=== PATIENT | male | born 1980 | race Caucasian/White ===

== ENCOUNTER 2025-04-14 22:36 | Emergency (ER) | payer SELFPAY ==
--- OUTSIDE RECORDS SUMMARY | 2025-04-12 18:47 | XMS_ITS | Encounter Summary ---
Author Organization [facility] Address [address] [place] [address] Care Team Providers Care Workforce Analyst Name Role Phone Devora Hutton Patricia DETAIL TECHNICIAN Primary Care Provider [phone] Reason for Visit * Reason Comments Vomiting Generalized Body Aches Encounter Details Date Type Department Care Team ([facility] st Contact Info) Description 04/12/2025 6:47 PM CDT - 04/12/2025 9:59 PM CDT [facility] Emergency Medicine [address] [place] [phone] Inder Boone MD [address] [place] [address] [place] [address] Gastroenteritis (Primary Dx); Dehydration Discharge Disposition: Home or Self Care Social History Tobacco Use Types Packs/Day Years Used Date Smoking Tobacco: Former Smokeless Tobacco: Never Alcohol Use Standard Drinks/Week Comments Not Currently 0 (1 standard drink = 0.6 oz pur e alcohol) Feeling Safe Answer Date Recorded Are you in a relationship wi th someone who hurts you emotionally and/or physically? 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 Gender Identity Not on file Sexual Orientation Not on file documented as of this encounter Last Filed Vital Signs Vital Sign Reading Time Taken Comments Blood Pressure 122/69 04/12/2025 9:00 PM CDT Pulse 68 04/12/2025 9:00 PM CDT Temperature 36.2 C (97.2 F) 04/12/2025 6:51 PM CDT Respiratory Rate 16 04/12/2025 9:00 PM CDT Oxygen Saturation 97% 04/12/2025 9:00 PM CDT Inhaled Oxygen Concentration - - Weight 116.4 kg (256 lb 9.6 oz) 04/12/2025 6:51 PM CDT Height 170.2 cm (5' 7 ) 04/12/2025 6:51 PM CDT Body Mass Index 40.19 04/12/2025 6:51 PM CDT documented in this encounter Discharge Instructions * Attachments The following attachments cannot be sent through Care Everywhere. * Dehydration (Kenyan) * Gastroenteritis (Kenyan) * Ondansetron (Kenyan) documented in this encounter Medications at Time of Discharge ondansetron (ZOFRAN ODT) 4 mg Tablet, Rapid Dissolve Take 1 Tablet (4 mg) by mouth every 8 hours as needed for Nausea/Emesis. Dissolve tablet on top of tongue, then swallow with saliva. 20 Tablet 04/12/2025 documented as of this encounter ED Notes * Cindy Chew RN - 04/12/2025 6:56 PM CDT Patient arrived to the ED via private vehicle complaining of nausea and vomiting with muscle spasmsthroughout his body. Patient states he gets like this when he gets dehydrated and states he's not having pain right now but he feels sore all over. Patient states this has been going on for 2 days now and today the pain has gotten worse. * Inder Boone MD - 04/12/2025 6:39 PM CDT HISTORY OF PRESENT ILLNESS Jonh Fofana, a 44 y.o. male presents to the ED with a Chief Complaint of Vomiting and Generalized Body Aches Subjective This patient is a 44-year-old white male who presents to the emergency department stating that he has no energy. States that his hands are cramping and he is having diffuse muscle spasms. States he has had vomiting and diarrhea since yesterday. He has also been working out in the heat. REVIEW OF SYSTEMS Review of Systems Constitutional: Negative for appetite change, chills, diaphoresis, fatigue and fever. HENT: Negative for congestion, ear pain, postnasal drip, rhinorrhea, sinus pressure and sore throat. Eyes: Negative for pain and visual disturbance. Respiratory: Negative for cough, chest tightness, shortness of breath and wheezing. Cardiovascular: Negative for chest pain, palpitations and leg swelling. Gastrointestinal: Positive for diarrhea, nausea and vomiting. Negative for abdominal distention, abdominal pain, blood in stool and constipation. Genitourinary: Negative for decreased urine volume, difficulty urinating, dysuria, flank pain, frequency, hematuria, testicular pain and urgency. Musculoskeletal: Negative for arthralgias, back pain, joint swelling, myalgias, neck pain and neck stiffness. Skin: Negative for rash. Neurological: Negative for dizziness, seizures, syncope, speech difficulty, weakness, light-headedness, numbness and headaches. Hematological: Negative for adenopathy. Psychiatric/Behavioral: Negative for behavioral problems, confusion, decreased concentration, dysphoric mood, self-injury, sleep disturbance and suicidal ideas. The patient is not nervous/anxious. All other systems reviewed and are negative. PAST MEDICAL HISTORY REVIEWED MEDICAL: Patient has a past medical history of Degenerative disc disease, Genital herpes, Gout, Heartburn, and Pancreatitis. SURGICAL: Patient has a past surgical history that includes dental surgery and cholecystectomy. FAMILY: Patient's family history includes Healthy in his father and mother. SOCIAL: reports that he has quit smoking. He has never used smokeless tobacco. He reports that he does not currently use alcohol. He reports current drug use. Frequency: 7.00 times per week. Drug: Marijuana.He reports being sexually active. No history on file. Social History Other Topics Concern Not on file ALLERGIES Menthol, Azithromycin, and Unclassified drug HOME MEDICATIONS Patient's Home Medications Current Home Medications No medications on file Medications Modified during this Encounter No medications on file Medications Discontinued during this Encounter No medications on file Objective PHYSICAL EXAM INITIAL VS BP: (!) 139/90 (04/12/251850), Heart Rate: 99 bpm (04/12/251850), Resp: 16 (04/12/251850), Pulse: 93 (04/12/25 1900), Temp: 97.2 ??F (36.2 ??C) (04/12/251850), Temp src: Temporal (04/12/251850),SpO2: 97 % (04/12/251850), Height: 5' 7 (170.2 cm) (04/12/251850), Weight: 116.4 kg (256 lb 9.6 oz) (04/12/251850), BMI (Calculated): (!) 40.18 (04/12/251850) No LMP for male patient. Physical Exam Vitals and nursing note reviewed. Constitutional: General: He is not in acute distress. Appearance: Normal appearance. He is not ill-appearing. HENT: Head: Normocephalic and atraumatic. Eyes: Conjunctiva/sclera: Conjunctivae normal. Pupils: Pupils are equal, round, and reactive to light. Cardiovascular: Rate and Rhythm: Normal rate and regular rhythm. Pulmonary: Effort: Pulmonary effort is normal. No respiratory distress. Breath sounds: Normal breath sounds. Abdominal: General: Abdomen is flat. Bowel sounds are normal. Palpations: Abdomen is soft. Tenderness: There is no abdominal tenderness. Musculoskeletal: General: No tenderness. Normal range of motion. Skin: General: Skin is warm and dry. Neurological: General: No focal deficit present. Mental Status: He is alert and oriented to person, place, and time. Psychiatric: Mood and Affect: Mood normal. Behavior: Behavior normal. DIAGNOSTICS LAB: CBC WITH DIFFERENTIAL - Abnormal Result Value WBC 8.7 RBC 5.30 HEMOGLOBIN 16.5 HEMATOCRIT 46.0 MCV 86.8 MCH 31.1 MCHC 35.9 RDW 12.4 RDW-STDEV 38.7 PLATELETS 180 MPV 11.0 NEUTROPHILS 65 LYMPHOCYTES 25 MONOCYTES 8 EOSINOPHILS 1 BASOPHILS 1 IMMATURE GRANULOCYTES 1 NEUTROPHIL ABSOLUTE 5.61 (*) LYMPHOCYTE ABSOLUTE 2.15 MONOCYTE ABSOLUTE 0.71 EOSINOPHIL ABSOLUTE 0.09 BASOPHILS ABSOLUTE 0.06 IMMATURE GRANULOCYTES ABSOLUTE 0.04 BASIC METABOLIC PANEL - Abnormal SODIUM 139 POTASSIUM 4.1 CHLORIDE 101 CO2 21 (*) CALCIUM 10.4 (*) BUN 17 CREATININE 1.27 (*) GLUCOSE 83 GFR >60 ANION GAP 17 RADIOLOGY: No orders to display EKG: PROCEDURES Procedures MEDICAL DECISION MAKING AND PLAN OF CARE Medical Decision Making CBC and BMP were normal. Patient was given 2 L of normal saline and 4 mg of Zofran IV. He likely has gastroenteritis along with some dehydration. He was discharged in stable condition. I did prescribe Zofran and recommended he push fluids and get some rest for couple of days. Follow-up with his primary care physician if no improvement. Risk Prescription drug management. Clinical Scoring & Consults Medications Administered During the ED Stay from 04/12/2025 1839 to 04/12/20252122 Date/Time Order Dose Route Action 04/12/20252030 CDT sodium chloride 0.9 % bolus solution 1,000 mL 0 mL IV Stopped 04/12/20252000 CDT sodium chloride 0.9 % bolus solution 1,000 mL 1,000 mL IV New Bag 04/12/20252000 CDT ondansetron (ZOFRAN) 4 mg/2 mL injection 4 mg 4 mg IV Given 04/12/20252117 CDT sodium chloride 0.9 % bolus solution 1,000 mL 1,000 mL IV New Bag . New Prescriptions for this Encounter ONDANSETRON (ZOFRAN ODT) 4 MG TABLET, RAPID DISSOLVE Take 1 Tablet (4 mg) by mouth every 8 hours asneeded for Nausea/Emesis. Dissolve tablet on top of tongue, then swallow with saliva. LAST VS BP: 123/87 (04/12/251999), Heart Rate: 99 bpm (04/12/251850), Resp: 16 (04/12/251999), Pulse: 90(04/12/251999), Temp: 97.2 ??F (36.2 ??C) (04/12/251850), Temp src: Temporal (04/12/251850), SpO2: 96 % (04/12/251999) CLINICAL IMPRESSION Final diagnoses: [K52.9] Gastroenteritis (Primary) [E86.0] Dehydration DISPOSITION, EDUCATION AND MEDICATION RECONCILIATION Medications reconciled. See after visit summary for patient education on discharged patients. ED Disposition ED Disposition Discharge Condition Stable User Inder Boone MD Date/Time ThuApr 12, 2025 8:45 PM Comment -- ATTESTATION STATEMENTS documented in this encounter Plan of Treatment Not on file documented as of this encounter Procedures Procedure Name Priority Date/Time Associated Diagnosis Comments CBC WITH DIFFERENTIAL Stat 04/12/2025 7:43 PM CDT BASIC METABOLIC PANEL Stat 04/12/2025 7:43 PM CDT documented in this encounter Results * (ABNORMAL) BASIC METABOLIC PANEL (04/12/2025 7:43 PM CDT) SODIUM 139 136 - 145 mmol/L 04/12/2025 8:04 PM CDT [facility] POTASSIUM 4.1 3.5 - 5.1 mmol/L 04/12/2025 8:04 PM [facility] CHLORIDE 101 98 - 107 mmol/L 04/12/2025 8:04 PM [facility] CO2 21(L) 22 - 29 mmol/L 04/12/2025 8:04 PM [facility] CALCIUM 10.4(H) 8.6 - 10.0 mg/dL 04/12/2025 8:04 PM [facility] BUN 17 6 - 20 mg/dL 04/12/2025 8:04 PM [facility] CREATININE 1.27(H) 0.67 - 1.17 mg/dL 04/12/2025 8:04 PM [facility] GLUCOSE 83 74 - 99 mg/dL 04/12/2025 8:04 PM [facility] GFR >60 >=60 mL/min/1.7 3 sq meter 04/12/2025 8:04 PM [facility] Comment:eGFR calculated with 2020 CKD-EPI equation. Vegetarian diet, extremely high or low muscle mass, and may affect results. Cystatin C with Glomerular Filtration Rate is a suitable alternative for these patients. ANION GAP 17 5 - 20 mmol/L 04/12/2025 8:04 PM [facility] Blood BLOOD SPECIMEN / Unknown Collection / Unknown 04/12/2025 7:43 PM CDT 04/12/2025 7:49 PM CDT us Inder Boone MD CHEMISTRY ORDERABLES Fin al Result [facility] CLIA # [id number] [address] [place] [address] * (ABNORMAL) CBC WITH DIFFERENTIAL (04/12/2025 7:43 PM CDT) WBC 8.7 4.2 - 9.1 K/uL 04/12/2025 7:52 PM CDT [facility] RBC 5.30 4.63 - 6.08 M/uL 04/12/2025 7:52 PM CDT [facility] HEMOGLOBIN 16.5 13.7 - 17.5 g/dL 04/12/2025 7:52 PM T [facility] HEMATOCRIT 46.0 40.1 - 51.0 % 04/12/2025 7:52 [facility] MCV 86.8 79.0 - 92.2 fL 04/12/2025 7:52 PM T [facility] MCH 31.1 25.7 - 32.2 pg 04/12/2025 7:52 PM T [facility] MCHC 35.9 32.3 - 36.5 g/dL 04/12/2025 7:52 PM [facility] RDW 12.4 11.0 - 14.5 % 04/12/2025 7:52 PM [facility] RDW-STDEV 38.7 36.9 - 56.9 fL 04/12/2025 7:52 PM T [facility] PLATELETS 180 130 - 400 K/uL 04/12/2025 7:52 PM T [facility] MPV 11.0 10.0 - 14.8 fL 04/12/2025 7:52 PM [facility] NEUTROPHILS 65 34 - 68 % 04/12/2025 7:52 PM [facility] LYMPHOCYTES 25 22 - 53 % 04/12/2025 7:52 PM [facility] MONOCYTES 8 5 - 12 % 04/12/2025 7:52 PM CDT [facility] EOSINOPHILS 1 1 - 7 % 04/12/2025 7:52 PM CDT [facility] BASOPHILS 1 0 - 1 % 04/12/2025 7:52 PM CDT [facility] IMMATURE GRANULOCYTES 1 % 04/12/2025 7:52 PM CDT [facility] NEUTROPHIL ABSOLUTE 5.61(H) 1.78 - 5.38 K/uL 04/12/2025 7:52 PM CDT [facility] LYMPHOCYTE ABSOLUTE 2.15 1.20 - 3.40 K/uL 04/12/2025 7:52 PM CDT [facility] MONOCYTE ABSOLUTE 0.71 0.30 - 0.82 K/uL 04/12/2025 7:52 PM CDT [facility] EOSINOPHIL ABSOLUTE 0.09 0.04 - 0.54 K/uL 04/12/2025 7:52 PM CDT [facility] BASOPHILS ABSOLUTE 0.06 0.01 - 0.08 K/uL 04/12/2025 7:52 PM CDT [facility] IMMATURE GRANULOCYTES ABSOLUTE 0.04 K/uL 04/12/2025 7:52 PM T [facility] Blood BLOOD SPECIMEN / Unknown Collection / Unknown 04/12/2025 7:43 PM CDT 04/12/2025 7:49 PM CDT Inder Boone MD HEMATOLOGY ORDERABLES Fi nal Result [facility] # [id number] [address] [place] [address] documented in this encounter Visit Diagnoses Diagnosis Gastroenteritis- Primary Other and unspecified noninfectious gastroenteritis and colitis Dehydration documented in this encounter Administered Medications Inactive Administered Medications - up to 3 most recent administrations Medication Order MAR Action Action Date Dose Rate Site ondansetron (ZOFRAN) 4 mg/2 mL injection 4 mg 4 mg, IV, ONE TIME ONLY, 1 dose, On Thu04/12/25 at 1999, Stat Given 04/12/2025 8:01 PM CDT 4 mg sodium chloride 0.9 % bolus solution 1,000 mL 1,000 mL, IV, ONE TIME ONLY, 1 dose, On Thu04/12/25 at 2000, at 2,000 mL/hr, Administer over 30 Minutes, Routine New Bag 04/12/2025 8:01 PM CDT 1,000 mL 2000 mL/hr sodium chloride 0.9 % bolus solution 1,000 mL 1,000 mL, IV, ONE TIME ONLY, 1 dose, On Thu04/12/25 at 2100, at 2,000 mL/hr, Administer over 30 Minutes, Routine New Bag 04/12/2025 9:18 PM CDT 1,000 mL 2000 mL/hr documented in this encounter Active and Recently Administered Medications Times are shown in CDT. Scheduled Medication Order 04/10/2025 04/11/2025 04/12/2025 ondansetron (ZOFRAN) 4 mg/2 mL injection 4 mg (COMPLETED) 4 mg, IV, ONE TIME ONLY, 1 dose, On Thu04/12/25 at 2000, Stat 2000 (Given - Provid er: Eleni Day RN) sodium chloride 0.9 % bolus solution 1,000 mL (COMPLETED) 1,000 mL, IV, ONE TIME ONLY, 1 dose, On Thu04/12/25 at 2000, at 2,000 mL/hr, Administer over 30 Minutes, Routine 2000 (New Bag - Prov ider: Eleni Day, ALFREDO)2030 (Stopped - Provider: Eleni Day RN) sodium chloride 0.9 % bolus solution 1,000 mL (COMPLETED) 1,000 mL, IV, ONE TIME ONLY, 1 dose, On Thu04/12/25 at 2100, at 2,000 mL/hr, Administer over 30 Minutes, Routine 2117 (New Bag - Prov ider: Eleni Day RN)2147 (Stopped - Provider: Elnei Day, RN) documented in this encounter Care Teams Workforce Analyst Relationship Specialty Start Date End Date Devora Hutton FNP [address] [place] [phone] PCP - General NURSE PRACTITIONER 01/23/14 documented as of this encounter
[2025-04-14 22:38] VITALS: BP 159/107; PULSE 95; RESP 16; TEMP 36.7; O2SAT 96; BMI 42.5
--- OUTSIDE RECORDS SUMMARY | 2025-04-14 22:46 | XMS_ITS | Encounter Summary ---
Author Organization [facility] Address 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
--- OUTSIDE RECORDS SUMMARY | 2025-04-14 22:46 | XMS_ITS | Clinical Summary ---
Author Organization [facility] Address [address] Attn: [place] [address] Care Team Providers Care Optometric Technician Name Role Phone Devora Hutton Patricia [facility] Primary Care Provider [phone] Allergies Active Allergy Reactions Criticality Noted Date Comments Azithromycin Nausea and Vomiting Low 06/26/2024 Menthol Other (See Comments) 10/16/2018 Chemical burn Unclassified Drug Nausea and Vomiting Low 4 Medications ondansetron (ZOFRAN ODT) 4 mg Tablet, Rapid Dissolve Take 1 Tablet (4 mg) by mouth every 8 hours as needed for Nausea/Emesis . Dissolve tablet on top of tongue, then swallow with saliva. 20 Tablet 5 Active ketorolac tromethamine (TORADOL) 10 mg tablet Take 1 Tablet (10 mg) by mouth every 6 hours as needed for Pain. 20 Tablet 5 03/20/20 25 Encounters Date Type Department Care Team Description 04/12/2025 6:47 PM CDT - 04/12/2025 9:59 PM CDT Emergency [facility] Emergency Medicine [address] [place] [phone] Inder Boone MD Gastroenteritis (Primary Dx); Dehydration Discharge Disposition: Home or Self Care 04/12/2025 Travel 04/11/2025 External Device Data [place] ABSTRACTION Provider, Abstract 04/11/2025 External Device Data [place] ABSTRACTION Provider, Abstract 03/22/2025 External Device Data [place] ABSTRACTION Provider, Abstract 03/21/2025 External Device Data [place] ABSTRACTION Provider, Abstract 03/21/2025 External Device Data [place] ABSTRACTION Provider, Abstract 03/15/2025 2:59 PM CDT - 03/15/2025 4:15 PM CDT Emergency [facility] Emergency Medicine [address] [place] [phone] Tommie Lanza MD Contusion of right forearm, initial encounter (Primary Dx) Discharge Disposition: Home or Self Care 03/15/2025 Travel 02/18/2025 2:20 AM CDT - 02/18/2025 2:42 AM CDT Emergency [facility] Emergency Medicine [address] [place] [phone] Andrea Hardy MD Ear pain, right (Primary Dx) Discharge Disposition: Home or Self Care 02/18/2025 Travel from Last 3 Months Family History Medical History Relation Name Comments Healthy Father Healthy Mother Relation Name Status Comments Father Alive Mother Alive Social History Tobacco Use Types Packs/Day Years [...] on file 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 Gender Identity Not on file Sexual Orientation Not on file Last Filed Vital Signs Vital Sign Reading [...] Mass Index 40.19 04/12/2025 6:51 PM CDT Plan of Treatment Health Maintenance Due Date Last Done Comments Pre-Diabetes and Diabetes Screening 1981 DTAP/TDAP/TD VACCINES (1 - Tdap) 2000 HEPATITIS B VACCINES (1 of 3 - 19+ 3-dose series) 2000 INFLUENZA VACCINE (#1) 2025 HPV VACCINES Aged Out No longer eligi ble based on patient's age to complete this topic Procedures Procedure Name Priority Date/Time Associated Diagnosis Comments BASIC METABOLIC PANEL Stat 04/12/2025 7:43 PM CDT CBC WITH DIFFERENTIAL Stat 04/12/2025 7:43 PM CDT XR FOREARM 2 VW RIGHT Stat 03/15/2025 3:19 PM CDT from Last 3 Months Results * (ABNORMAL) CBC WITH DIFFERENTIAL (04/12/2025 7:43 PM CDT) WBC 8.7 4.2 - 9.1 K/uL 04/12/2025 7:52 PM CDT [facility] RBC 5.30 4.63 - 6.08 M/uL 04/12/2025 7:52 PM CDT [facility] HEMOGLOBIN 16.5 13.7 - 17.5 g/dL 04/12/2025 7:52 PM CDT [facility] HEMATOCRIT 46.0 40.1 - 51.0 % 04/12/2025 7:52 PM CDT [facility] MCV 86.8 79.0 - 92.2 fL 04/12/2025 7:52 PM CDT [facility] MCH 31.1 25.7 - 32.2 pg 04/12/2025 7:52 PM CDT [facility] MCHC 35.9 32.3 - 36.5 g/dL 04/12/2025 7:52 PM CDT [facility] RDW 12.4 11.0 - 14.5 % 04/12/2025 7:52 PM CDT [facility] RDW-STDEV 38.7 36.9 - 56.9 fL 04/12/2025 7:52 PM T [facility] PLATELETS 180 130 - 400 K/uL 04/12/2025 7:52 PM [facility] MPV 11.0 10.0 - 14.8 fL 04/12/2025 7:52 PM [facility] NEUTROPHILS 65 34 - 68 % 04/12/2025 7:52 PM [facility] LYMPHOCYTES 25 22 - 53 % 04/12/2025 7:52 PM [facility] MONOCYTES 8 5 - 12 % 04/12/2025 7:52 PM [facility] EOSINOPHILS 1 1 - 7 % 04/12/2025 7:52 PM [facility] BASOPHILS 1 0 - 1 % 04/12/2025 7:52 PM [facility] IMMATURE GRANULOCYTES 1 % 04/12/2025 7:52 PM [facility] NEUTROPHIL ABSOLUTE 5.61(H) 1.78 - 5.38 K/uL 04/12/2025 7:52 PM [facility] LYMPHOCYTE ABSOLUTE 2.15 1.20 - 3.40 K/uL 04/12/2025 7:52 PM [facility] MONOCYTE ABSOLUTE 0.71 0.30 - 0.82 K/uL 04/12/2025 7:52 PM [facility] EOSINOPHIL ABSOLUTE 0.09 0.04 - 0.54 K/uL 04/12/2025 7:52 PM [facility] BASOPHILS ABSOLUTE 0.06 0.01 - 0.08 K/uL 04/12/2025 7:52 PM [facility] IMMATURE GRANULOCYTES ABSOLUTE 0.04 K/uL 04/12/2025 7:52 PM [facility] Blood BLOOD SPECIMEN / Unknown Collection / Unknown 04/12/2025 7:43 PM CDT 04/12/2025 7:49 PM CDT us Inder Boone MD HEMATOLOGY ORDERABLES Fi nal Result [facility] CLIA # [id number] [address] [address] * (ABNORMAL) BASIC METABOLIC PANEL (04/12/2025 7:43 PM CDT) SODIUM 139 136 - 145 mmol/L 04/12/2025 8:04 PM [facility] POTASSIUM 4.1 3.5 - 5.1 mmol/L 04/12/2025 8:04 PM [facility] CHLORIDE 101 98 - 107 mmol/L 04/12/2025 8:04 PM [facility] CO2 21(L) 22 - 29 mmol/L 04/12/2025 8:04 PM [facility] CALCIUM 10.4(H) 8.6 - 10.0 mg/dL 04/12/2025 8:04 PM [facility] BUN 17 6 - 20 mg/dL 04/12/2025 8:04 PM [facility] CREATININE 1.27(H) 0.67 - 1.17 mg/dL 04/12/2025 8:04 PM [facility] GLUCOSE 83 74 - 99 mg/dL 04/12/2025 8:04 PM [facility] GFR >60 >=60 mL/min/1.7 3 sq meter 04/12/2025 8:04 PM [facility] Comment:eGFR calculated with 2020 CKD-EPI equation. Vegetarian diet, extremely high or low muscle mass, and may affect results. Cystatin C with Glomerular Filtration Rate is a suitable alternative for these patients. ANION GAP 17 5 - 20 mmol/L 04/12/2025 8:04 PM [facility] Blood BLOOD SPECIMEN / Unknown Collection / Unknown 04/12/2025 7:43 PM CDT 04/12/2025 7:49 PM CDT us Inder Boone MD CHEMISTRY ORDERABLES Fin al Result [facility] CLIA # [id number] [address] [address] * XR FOREARM 2 VW RIGHT (03/15/2025 3:19 PM CDT) Anatomical Region Laterality Modality Upper Extremity Computed Radiogr aphy 03/15/2025 3:19 PM CDT Impressions 03/15/2025 3:41 PM CDT IMPRESSION: No acute osseous abnormality. Narrative 03/15/2025 3:41 PM CDT Exam: XR FOREARM 2 VW RIGHT Date/Time of Exam: 03/15/2025 3:19 PM Reason For Exam: Injury. Diagnosis: See Reason for Exam. Comparison: None. Findings: There is no evidence of an acute fracture, dislocation or significant arthrosis. There is prominent proximal olecranon enthesopathy at the triceps tendon insertion. There is no apparent joint effusion. The soft tissues appear grossly unremarkable. Procedure Note Alonzo Callahan, DO - 03/15/2025 Exam: XR FOREARM 2 VW RIGHT Date/Time of Exam: 03/15/2025 3:19 PM Reason For Exam: Injury. Diagnosis: See Reason for Exam. Comparison: None. Findings: There is no evidence of an acute fracture, dislocation or significant arthrosis. There is prominent proximal olecranon enthesopathy at the triceps tendon insertion. There is no apparent joint effusion. The soft tissues appear grossly unremarkable. IMPRESSION: No acute osseous abnormality. Tommie Lanza MD DIAGNOSTIC IMAGING ORDERABLE S Final Result from Last 3 Months Care Teams Optometric Technician Relationship Specialty Start Date End Date Devora Hutton FNP [address] [place] [address] PCP - General NURSE PRACTITIONER 01/23/14
--- OUTSIDE RECORDS SUMMARY | 2025-04-14 22:46 | XMS_ITS | Encounter Summary ---
Author Organization [facility] Address 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
--- OUTSIDE RECORDS SUMMARY | 2025-04-14 22:46 | XMS_ITS | Encounter Summary ---
Author Organization [facility] Address [address] 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
--- OUTSIDE RECORDS SUMMARY | 2025-04-14 22:46 | XMS_ITS | Clinical Summary ---
[facility] Organization [facility] Address [address] [place] [address] Phone Care Team Providers Care Grain Inspector Name Role Phone BrennenDevora Patricia [facility] Primary Care Provider [phone] Allergies Active Allergy Reactions Criticality Noted Date Comments Menthol Other (See Comments) 10/16/2018 Chemical burn Unclassified Drug Nausea and Vomiting Low 4 Medications baclofen (LIORESAL) 20 mg tablet Take 1 Tablet (20 mg) by mouth 3 times daily as needed for Pain. 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 Gender Identity Not on file Sexual Orientation Not on file Occupation Industry Job Start Date Job End Date Not on file Not on file Not on file Not on file Last Filed Vital Signs Vital Sign Reading Time Taken Comments Blood Pressure 124/69 06/05/2019 5:22 PM CDT Pulse 60 11/24/2018 5:12 AM LAND SURVEYOR Temperature 36.4 C (97.6 F) 06/05/2019 5:22 PM CDT Respiratory Rate 20 06/05/2019 5:22 PM CDT Oxygen Saturation 98% 06/05/2019 5:22 PM CDT Inhaled Oxygen Concentration - - Weight 122.6 kg (270 lb 3.2 oz) 06/05/2019 2:45 PM CDT Height 172.7 cm (5' 8 ) 06/05/2019 2:45 PM CDT Body Mass Index 41.08 06/05/2019 2:45 PM CDT Plan of Treatment Health Maintenance Due Date Last Done Comments DTAP/TDAP/TD VACCINES (1 - Tdap) 2000 HEPATITIS B VACCINES (1 of 3 - 19+ 3-dose series) 2000 INFLUENZA VACCINE (#1) 2025 HPV VACCINES Aged Out No longer eligi ble based on patient's age to complete this topic [place] [address] [place] [address] [employer] Care Teams Grain Inspector Relationship Specialty Start Date End Date Devora Hutton FNP PCP - General NURSE PRACTITIONER 01/23/14
--- OUTSIDE RECORDS SUMMARY | 2025-04-14 22:46 | XMS_ITS | Encounter Summary ---
Author Organization [facility] Address [address] [place] [address] Care Team Providers Care Executive Sales Manager Name Role Phone Devora Hutton Primary Care Provider [phone] Encounter Details Date Type Department Care Team (Latest Contact Info) Description 08/19/2000 Outpatient Historical [facility] [place] [address] [place] [address] Magdalena Bradford MD [address] [place] [address] Other and unspecified noninfectious gastroenteritis and colitis(558.9) (Primary Dx) Social History Tobacco Use Types Packs/Day Years Used Date Smoking Tobacco: Never Assessed Sex and Gender Information Value Date Recorded Sex Assigned at Not on file 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
--- OUTSIDE RECORDS SUMMARY | 2025-04-14 22:46 | XMS_ITS | Encounter Summary ---
Author Organization [facility] Address [address] [place] [address] Care Team Providers Care Electric Motor Repairer Name Role Phone Devora Hutton Primary Care Provider [phone] Encounter Details Date Type Department Care Team (Latest Contact Info) Description 12/24/1998 Outpatient Historical [facility] [place] [address] [place] [id number] [address] [place] [address] Cough (Primary Dx) Social History Tobacco Use Types Packs/Day Years Used Date Smoking Tobacco: Never Assessed Sex and Gender Information Value Date Recorded Sex Assigned at Not on file 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
--- OUTSIDE RECORDS SUMMARY | 2025-04-14 22:46 | XMS_ITS | Encounter Summary ---
Author Organization [facility] Address [address] 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
--- OUTSIDE RECORDS SUMMARY | 2025-04-14 22:46 | XMS_ITS | Encounter Summary ---
Author Organization [facility] Address [address] [place] [address] Care Team Providers Care Pcat Instructor Name Role Phone Devora Hutton Primary Care Provider [phone] Encounter Details Date Type Department Care Team (Latest Contact Info) Description 12/24/1998 Outpatient Historical [facility] [place] [address] [place] [phone] [address] [place] [address] Cough (Primary Dx) Social History Tobacco Use Types Packs/Day Years Used Date Smoking Tobacco: Never Assessed Sex and Gender Information Value Date Recorded Sex Assigned at Not on file 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
--- OUTSIDE RECORDS SUMMARY | 2025-04-14 22:47 | XMS_ITS | Encounter Summary ---
Author Organization [facility] Address [address] 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
[2025-04-15 00:54] LABS: Hematocrit 47.1 % (37-53); Hemoglobin 16.80 g/dL (11.27-16.99); Mean Corpuscular HGB Conc 35.7 g/dL (30-55); Mean Corpuscular Hemoglobin 31.2 pg (27-33); Mean Corpuscular Volume 87.5 fl (82-101); Nucleated Red Blood Cells % 0 %; Platelet Count 217 10^3/cmm (157-399); Red Blood Count 5.38 10^6/uL (3.85-5.65); White Blood Count 10.00 10^3/uL (3.29-11.43)
[2025-04-15 01:19] LABS: Alanine Aminotransferase 38 U/L (0-41); Albumin Level 5.0 g/dL (3.5-5.2); Alkaline Phosphatase 93 U/L (40-130); Anion Gap 23.7 (5-19); Aspartate Amino Transferase 38 U/L (0-40); Blood Urea Nitrogen 18 mg/dL (6-20); Calcium 9.8 mg/dL (8.5-10.5); Carbon Dioxide 19 mmol/L (22-29); Chloride 96 mmol/L (98-107); Creatinine Clr Calc Pharmacy 80.5067; Globulin 3.9 g/dL (1.3-4.6); Glucose 107 mg/dL (65-115); Osmolality Calculated 282 mOsm/kg (285-295); Potassium 3.7 mmol/L (3.5-5.1); Sodium 135 mmol/L (136-145); Total Protein 8.9 g/dL (6.6-8.7)
[2025-04-15 01:26] LABS: Glucose Urine UA Negative (Normal); Nitrate Urine Negative (Negative); Specific Gravity, Urine 1.029 (1.005-1.030)
[2025-04-15 01:31] LABS: Add Urine Microscopic? YES
[2025-04-15] MEDS: LORazepam 1 MG/0.5 ML injection IVP ×2 (01:43→03:22)
[2025-04-15 01:48] LABS: UA Slide Review UA Slide Review Perf
--- NOTE | 2025-04-15 01:53 | ED_ITS ---
HPI - Weakness 2 General: Chief complaint: Weakness Stated complaint: muscle spasms whole body Time Seen by Provider: 04/15/25 01:28 History of Present Illness: 44-year-old male patient who was seen a couple of days ago in outside facility for widespread muscle cramping. He is experiencing cramping to his abdomen, upper and lower extremities. His face is spared. He was told that he was dehydrated there, but continues to have cramping despite drinking 2 gallons of water at home he says. He states that his urine is dark and has had a significant decrease in his urine output in the last 24 hours despite the water intake. Related Data Allergies Allergy/AdvReac Type Severity Reaction Status Date / Time azithromycin Allergy Unknown Verified 04/14/25 22:44 Physical Exam 2 Const: COMMON NORMALS: no acute distress GENERAL APPEARANCE: cooperative; not ill appearing and not frail appearing HENMT: COMMON NORMALS: normocephalic, atraumatic and Normal external nose present HEAD & SCALP: normocephalic and atraumatic FACE & SINUS: normal facial exam and face symmetric NOSE: Normal external nose present Eye: COMMON NORMALS: Equal, round and reactive pupils present and EOMs intact bilaterally PUPIL: Yes Equal, round and reactive pupils present Neck/C-Spine: GENERAL: Yes trachea midline Chest: CHEST: Yes Symmetrical chest wall rise Resp: COMMON NORMALS: normal respiratory effort, No retractions, No use of accessory muscles and clear to auscultation bilaterally AUSCULTATION: clear to auscultation bilaterally Cardio: COMMON NORMALS: regular rate and regular rhythm RATE: regular rate RHYTHM: regular rhythm GI: COMMON NORMALS: Normal to inspection, nondistended, normoactive bowel sounds present Extremity: COMMON NORMALS: no pedal edema Neuro: GINO COMA SCALE: document GCS findings [place] coma scale eye opening: Spontaneous [place] coma scale verbal response: Orientated [place] coma scale motor response: Obey commands Gino coma scale total score: 15 S ENSORY EXAM: Yes extremities (intact) Psych: COMMON NORMALS: speech normal SPEECH: Yes normal speech Skin: COMMON NORMALS: no rashes or lesions noted GENERAL SKIN EXAM: no rashes or lesions noted Course 2 Vital Signs: Vital signs: Vital Signs Temperature 98.1 F 04/14/25 22:38 Pulse Rate 79 04/15/25 04:39 Respiratory Rate 16 04/14/25 22:38 Blood Pressure 133/85 07/12/25 04:39 Pulse Oximetry 97 04/15/25 04:39 Oxygen Delivery Me thod Room Air 04/15/25 04:00 MDM - Weakness Medical Decision Making The patient vitals are stable. His creatinine is 1.3. His CK is 999. He has protein in his urine without bladder infection. He is given 2 L of fluid here, along with some lorazepam. He is feeling improved. It appears he has mild rhabdomyolysis. Continue to push fluids at home, stay in a cool environment. CK should be rechecked. He was warned of this. Return for any new or worsening symptoms. Lab Data 04/15/25 00:47 04/15/25 00:47 Laboratory Results WBC 10.00 10^3/uL (3.29-11.43) 04/15/25 00:47 RBC 5.38 10^6/uL (3.85-5.65) 04/15/25 00:47 Hgb 16.80 g/dL (11.27-16.99) 04/15/25 00:47 Hct 47.1 % (37-53) 04/15/25 00:47 MCV 87.5 fl (82-101) 04/15/25 00:47 MCH 31.2 pg (27-33) 04/15/25 00:47 MCHC 35.7 g/dL (30-55) 04/15/25 00:47 RDW 12.3 % (12.1-15.1) 04/15/25 00:47 Plt Count 217 10^3/cmm (157-399) 04/15/25 00:47 MPV 10.8 fL (7.4-10.4) H 04/15/25 00:47 Neut % (Auto) 64.7 % 04/15/25 00:47 Lymph % (Auto) 23.8 % 04/15/25 00:47 Bulloch % (Auto) 10.1 % 04/15/25 00:47 Eos % (Auto) 0.5 % 04/15/25 00:47 Baso % (Auto) 0.6 % 04/15/25 00:47 Neut # (Auto) 6.47 10^3/uL (1.8-7.7) 04/15/25 00:47 Lymph # (Auto) 2.4 10^3/uL (0.8-4.8) 04/15/25 00:47 Bulloch # (Auto) 1.0 10^3/uL (0.2-0.9) H 04/15/25 00:47 Eos # (Auto) 0.1 10^3/uL (0.0-0.8) 04/15/25 00:47 Baso # (Auto) 0.1 10^3/uL (0.0-0.1) 04/15/25 00:47 Nucleated RBC % (auto) 0 % 07 00:47 Nucleated RBCs # 0.0 /100WBC 04/15/25 00:47 Sodium 135 mmol/L (136-145) L 04/15/25 00:47 Potassium 3.7 mmol/L (3.5-5.1) 04/15/25 00:47 Chloride 96 mmol/L (98-107) L 04/15/25 00:47 Carbon Dioxide 19 mmol/L (22-29) L 04/15/25 00:47 Anion Gap 23.7 (5-19) H 04/15/25 00:47 BUN 18 mg/dL (6-20) 04/15/25 00:47 Creatinine 1.3 mg/dL (0.7-1.2) H 04/15/25 00:47 GFR Calculation 60.2 mL/min (90-130) L 04/15/25 00:47 Glucose 107 mg/dL (65-115) 04/15/25 00:47 Calculated Osmolality 282 mOsm/kg (285-295) L 04/15/25 00:47 Lactic Acid 0.9 mmol/L (0.5-2.2) 04/15/25 00:47 Calcium 9.8 mg/dL (8.5-10.5) 04/15/25 00:47 Magnesium 2.3 mg/dL (1.7-2.3) 04/15/25 00:47 Total Bilirubin 0.9 mg/dL (0.15-1.2) 04/15/25 00:47 AST 38 U/L (0-40) 04/15/25 00:47 ALT 38 U/L (0-41) 04/15/25 00:47 Alkaline Phosphatase 93 U/L (40-130) 04/15/25 00:47 Creatine Kinase 999 U/L (39-308) H* 04/15/25 00:47 Total Protein 8.9 g/dL (6.6-8.7) H 04/15/25 00:47 Albumin 5.0 g/dL (3.5-5.2) 04/15/25 00:47 Globulin 3.9 g/dL (1.3-4.6) 04/15/25 00:47 Urine Color Dark yellow (Yellow) A 04/15/25 00:51 Urine Appearance Clear (CLEAR) 04/15/25 00:51 Urine pH 5.0 (5-7) 04/15/25 00:51 Ur Specific [place] 1.029 (1.005-1.030) 04/15/25 00:51 Urine Protein 3+ (Negative) A 04/15/25 00:51 Urine Glucose (UA) Negative (Normal) 04/15/25 00:51 Urine Ketones 1+ (Negative) H 04/15/25 00:51 Urine Blood Negative (Negative) 04/15/25 00:51 Urine Nitrate Negative (Negative) 04/15/25 00:51 Urine Bilirubin Negative (Negative) 04/15/25 00:51 Urine Urobilinogen 1.0 mg/dL (Negative) 04/15/25 00:51 Ur Leukocyte Esterase Negative (Negative) 04/15/25 00:51 Urine RBC 0-2 /hpf (0-2) 04/15/25 00:51 Urine WBC 0-5 /hpf (0-5) 04/15/25 00:51 Ur Squamous Epith Cells 6-10 /hpf (0-5) 04/15/25 00:51 Amorphous Sediment Not Reportable 04/15/25 00:51 Urine Bacteria None seen /hpf (NONE) 04/15/25 00:51 Hyaline Casts 85.63 /lpf 04/15/25 00:51 Fine Granular Casts 0-4 /lpf H 04/15/25 00:51 Coarse Granular Casts 5-10 /lpf H 04/15/25 00:51 Urine Opiates Screen Negative ng/mL (Negative) 04/15/25 01:51 Ur Barbiturates Screen Negative ng/mL (Negative) 04/15/25 01:51 Ur Phencyclidine Scrn Negative ng/mL (Negative) 04/15/25 01:51 Ur Amphetamines Screen Negative ng/mL (Negative) 04/15/25 01:51 U Benzodiazepines Scrn Negative ng/mL (Negative) 04/15/25 01:51 Urine Cocaine Screen Negative ng/mL (Negative) 04/15/25 01:51 U Marijuana (THC) Screen Positive ng/mL (Negative) H 04/15/25 01:51 Ethyl Alcohol < 10 mg/dL (0-10) 04/15/25 00:47 All radiology interpretation(s) finalized by discharge Discharge Plan Discharge Patient Disposition: Home Clinical Impression: Rhabdomyolysis Condition: Stable Discharge Orders: Discharge ED (Routine); Ordered 04/15/25 Ordered By: Enrique Chaves Patient Instructions: Rhabdomyolysis (ED), Opioid Safety, Pain Management, Patient Portal & Maricel Instructions Activity Restrictions/Additional Instructions: Drink plenty of clear liquids for the next 48 hours. Some level of salt intake can help with your symptoms as well. Return for continued decreased urination despite the above, development of severe abdominal pain, vomiting, any other concerning symptoms. Stay in a cool environment for the next 48 hours. Print Language: Ghanaian Coding Level of Care Code ED Head Men'S Tennis Coach for Cristina Loya
[2025-04-15 02:10] LABS: PCP Screen Urine Negative (Negative)
[2025-04-15 02:10] LABS: Lactic Sepsis W/Reflex 0.9 mmol/L (0.5-2.2)
[2025-04-15 02:11] LABS: Magnesium 2.3 mg/dL (1.7-2.3)
[2025-04-15 02:14] LABS: Alcohol Level < 10 mg/dL (0-10)
[2025-04-15 02:56] VITALS: BP 135/85; PULSE 92; O2SAT 96
[2025-04-15 04:00] VITALS: BP 117/69; PULSE 75; O2SAT 97
[2025-04-15 04:39] VITALS: BP 133/85; PULSE 79; O2SAT 97
== END 2025-04-15 04:41 | disposition home or self-care (01) ==
PROVIDERS: Emergency Provider Emergency Medicine
DX: M62.82 Rhabdomyolysis (principal)
CPT/HCPCS: 36415; 80053; 80306; 80307; 81001; 82550; 83605; 83735; 85025; 96361; 96374; 96376; 99284; J2060; J7030

== ENCOUNTER 2025-06-16 12:10 | Emergency (ER) | payer SELFPAY ==
--- NOTE | 2025-06-16 12:15 | ED_ITS ---
HPI - General Adult 2 General: Chief complaint: Syncope Stated complaint: near syncope - gen weakness Time Seen by Provider: 06/16/25 12:12 History of Present Illness: 44-year-old male presents emergency room with near syncopal episode and weakness while at work. 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 He got confused. Most of that has resolved he got mildly diaphoretic for period of time. He denies any fever sweats or chills no recent cough or shortness of breath no chest pain or abdominal pain Associated symptoms: Deny chest pain, dyspnea or rash Related Data Home Medications ?Medication ?Instructions ?Recorded ?Confirmed No Known Home Medications 06/16/2506/05 Allergies Allergy/AdvReac Type Severity Reaction Status Date / Time azithromycin Allergy Unknown Verified 04/14/25 22:44 menthol (From Taglocity Hot) Allergy ALGY-Rash Verified 06/16/25 13:32 methyl salicylate (From Icy Allergy ALGY-Rash Verified 06/16/25 13:32 Hot) Review of Systems 2 Const: Denies: fever(s) or chills Card: Denies: chest pain Resp: Denies: dyspnea GI: Denies: abdominal pain : Denies: dysuria, urinary frequency or urinary urgency Musc: Denies: neck pain or back pain Skin/Breast: Denies: rash Physical Exam 2 Const: GENERAL APPEARANCE: cooperative ORIENTATION/CONSCIOUSNESS: Yes awake, Yes oriented to person, Yes oriented to place and Yes oriented to time HENMT: COMMON NORMALS: normocephalic, atraumatic and hearing grossly normal bilaterally HEAD & SCALP: normocephalic and atraumatic Resp: COMMON NORMALS: normal respiratory effort, No retractions, No use of accessory muscles and clear to auscultation bilaterally AUSCULTATION: clear to auscultation bilaterally Cardio: COMMON NORMALS: regular rate, regular rhythm and No murmurs present (Cardio) RATE: regular rate RHYTHM: regular rhythm GI: COMMON NORMALS: Soft to palpation and No hepatosplenomegaly present A USCULTATION: Yes normoactive bowel sounds PALPATION: Yes Soft to palpation, No Tenderness to palpation present (GI), No Guarding due to palpation present (GI) and Yes No hepatosplenomegaly present Extremity: COMMON NORMALS: normal to inspection, capillary refill normal, no clubbing, cyanosis or edema, no calf tenderness and no pedal edema Neuro: SENSORIUM/ORIENTATION: Yes oriented to person, Yes oriented to place and Yes oriented to time Skin: COMMON NORMALS: no rashes or lesions noted GENERAL SKIN EXAM: no rashes or lesions noted Course 2 Vital Signs: Vital signs: Vital Signs Temperature 98.1 F 06/16/25 12:18 Pulse Rate 69 06/16/25 14:57 Respiratory Rate 16 06/16/25 12:18 Blood Pressure 150/88 06/16/25 14:57 Pulse Oximetry 98 06/16/25 14:57 Oxygen Delivery Me thod Room Air 06/16/25 13:36 MDM - General Adult Medical Decision Making Laboratory test reviewed. Patient has a mild rhabdomyolysis. Lipase elevated but does not have any pancreatitis symptoms. He is feeling better he was given fluids will discharge home and have him follow-up within the next week to repeat kidney function return if has worsening symptoms. Patient ambulated prior to discharge with no further symptoms. Medical Records I reviewed the patient's medical records. Lab Data I reviewed the patient's lab results. 06/16/25 12:25 06/16/25 12: Laboratory Results WBC 5.49 10^3/uL (3.29-11.43) 06/16/25 12: RBC 4.52 10^6/uL (3.85-5.65) 06/16/25 12: Hgb 14.10 g/dL (11.27-16.99) 06/16/25 12: Hct 40.1 % (37-53) 06/16/25 12:25 MCV 88.7 fl (82-101) 06/16/25 12: MCH 31.2 pg (27-33) 06/16/25: MCHC 35.2 g/dL (30-55) 06/16/25: RDW 12.4 % (12.1-15.1) 06/16/25 12: Plt Count 156 10^3/cmm (157-399) L 06/16/25 12: MPV 10.6 fL (7.4-10.4) H 06/16/25 12:25 Neut % (Auto) 53.0 % 06/16/25 12: Lymph % (Auto) 33.7 % 06/16/25: Nuckolls % (Auto) 9.1 % 06/16/25: Eos % (Auto) 3.3 % 06/16/25: Baso % (Auto) 0.7 % 06/16/25: Neut # (Auto) 2.91 10^3/uL (1.8-7.7) 06/16/25: Lymph # (Auto) 1.9 10^3/uL (0.8-4.8) 06/16/25: Nuckolls # (Auto) 0.5 10^3/uL (0.2-0.9) 06/16/25: Eos # (Auto) 0.2 10^3/uL (0.0-0.8) 06/16/25: Baso # (Auto) 0.0 10^3/uL (0.0-0.1) 06/16/25: Nucleated RBC % (auto) 0 % 06/16/25: Nucleated RBCs # 0.0 /100WBC 06/16/25: Sodium 138 mmol/L (136-145) 06/16/25: Potassium 4.1 mmol/L (3.5-5.1) 06/16/25: Chloride 105 mmol/L (98-107) 06/16/25: Carbon Dioxide 22 mmol/L (22-29) 06/16/25: Anion Gap 15.1 (5-19) 06/16/25 12:25 BUN 17 mg/dL (6-20) 06/16/25:25 Creatinine 0.8 mg/dL (0.7-1.2) 06/16/25: GFR Calculation 105.5 mL/min (90-130) 06/16/25: Glucose 90 mg/dL (65-115) 06/16/25: Calculated Osmolality 287 mOsm/kg (285-295) 06/16/25: Calcium 9.2 mg/dL (8.5-10.5) 06/16/25: Total Bilirubin 0.7 mg/dL (0.15-1.2) 06/16/25 12:25 AST 29 U/L (0-40) 06/16/25 12:25 ALT 26 U/L (0-41) 06/16/25 12:25 Alkaline Phosphatase 71 U/L (40-130) 06/16/25 12:25 Creatine Kinase 400 U/L (39-308) H* 06/16/25 12:25 Total Protein 7.6 g/dL (6.6-8.7) 06/16/25 12: Albumin 4.5 g/dL (3.5-5.2) 06/16/25 12: Globulin 3.1 g/dL (1.3-4.6) 06/16/25: Lipase 82 U/L (13-60) H 06/16/25 12:25 Urine Color Yellow (Yellow) 06/16/25 12:40 Urine Appearance Clear (CLEAR) 06/16/25 12:40 Urine pH 5.0 (5-7) 06/16/25 12:40 Ur Specific [place] 1.026 (1.005-1.030) 06/16/25 12:40 Urine Protein Trace (Negative) A 06/16/25 12:40 Urine Glucose (UA) Negative (Normal) 06/16/25 12:40 Urine Ketones Trace (Negative) 06/16/25 12:40 Urine Blood Negative (Negative) 06/16/25 12:40 Urine Nitrate Negative (Negative) 06/16/25 12:40 Urine Bilirubin Negative (Negative) 06/16/25 12:40 Urine Urobilinogen 1.0 mg/dL (Negative) 06/16/25 12:40 Ur Leukocyte Esterase Negative (Negative) 06/16/25 12:40 Urine RBC 0-2 /hpf (0-2) 06/16/25 12:40 Urine WBC 0-5 /hpf (0-5) 06/16/25 12:40 Ur Squamous Epith Cells 0-5 /hpf (0-5) 06/16/25 12:40 Amorphous Sediment Not Reportable 06/16/25 12:40 Urine Bacteria None seen /hpf (NONE) 06/16/25 12:40 Hyaline Casts 0.40 /lpf 06/16/25 12:40 All radiology interpretation(s) finalized by discharge Discharge Plan Discharge Patient Disposition: Home Clinical Impression: Syncope due to orthostatic hypotension, Rhabdomyolysis Condition: Stable Prescriptions: No Action No Known Home Medications Discharge Orders: Discharge ED (Routine); Ordered 06/16/25 Ordered By: Joaquim Castro Discharge Diet: Usual diet Discharge Activity: Resume usual activity Patient Instructions: Opioid Safety, Pain Management, Patient Portal & Maricel Instructions Activity Restrictions/Additional Instructions: Thank you for choosing [facility] for your healthcare needs today. It is very important that you follow up as instructed or that you return to the Emergency Department should you have concerns or if your condition changes or worsens in any way. Emergency department visits are focused on emergent conditions, in some cases you may require further evaluation on an outpatient basis. You were seen in the emergency room after a near syncopal episode at work. You are given 2 L of fluid in the emergency room. You ambulated without difficulty your laboratory test did show CPK and enzyme for muscle breakdown was slightly elevated. This is probably due to some mild dehydration and overheating. Increase your fluid intake and rest for the least next 2 to 3 days avoid exposure to heat. Follow-up with your primary care doctor next week to have laboratory test rechecked (Please note that included in your discharge packet is information concerning opioid safety and pain management. This information is given to all patients were discharged from the ER regardless of their discharge diagnosis or the medicines they usually take or are prescribed.) Print Language: Mohawk Coding Level of Care Code ED Furnace Filler for Cristina Loya
[2025-06-16 12:18] VITALS: BP 145/92; PULSE 65; RESP 16; TEMP 36.7; O2SAT 97; BMI 39.5
[2025-06-16 12:22] VITALS: PULSE 62; O2SAT 96
--- OUTSIDE RECORDS SUMMARY | 2025-06-16 12:22 | XMS_ITS | Encounter Summary ---
Author Organization [facility] Address [address] [place] [address] Care Team Providers Care Automotive Buyer Name Role Phone Devora Hutton Primary Care Provider Encounter Details Date Type Department Care Team (Latest Contact Info) Description 08/19/2000 Outpatient Historical [facility] [address] [place] [address] Magdalena Bradford MD [address] [place] [address] Other and unspecified noninfectious gastroenteritis and colitis(558.9) (Primary Dx) Social History Tobacco Use Types Packs/Day Years Used Date Smoking Tobacco: Never Assessed Sex and Gender Information Value Date Recorded Sex Assigned at Not on file 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
--- OUTSIDE RECORDS SUMMARY | 2025-06-16 12:22 | XMS_ITS | Encounter Summary ---
Author Organization [facility] Address [address] [place] [address] Care Team Providers Care President/Gm Production & Live Experiences Name Role Phone Devora Hutton Primary Care Provider [phone] Encounter Details Date Type Department Care Team (Latest Contact Info) Description 12/24/1998 Outpatient Historical [facility] [place] [address] [place] [id number] [address] [place] [address] Cough (Primary Dx) Social History Tobacco Use Types Packs/Day Years Used Date Smoking Tobacco: Never Assessed Sex and Gender Information Value Date Recorded Sex Assigned at Not on file Legal Sex Male 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
--- OUTSIDE RECORDS SUMMARY | 2025-06-16 12:22 | XMS_ITS | Clinical Summary ---
Author Organization [facility] Address [address] Attn: Epic Prelude ADT [place] [address] Care Team Providers Care Heat Treat Puller Name Role Phone Amrit Gunn MD Primary Care Provider [phone] Allergies Active Allergy Reactions Criticality Noted Date Comments Azithromycin Nausea and Vomiting Low 06/26/2024 Menthol Other (See Comments) 10/16/2018 Chemical burn Unclassified Drug Nausea and Vomiting Low 4 Medications ondansetron (ZOFRAN ODT) 4 mg Tablet, Rapid Dissolve Take 1 Tablet (4 mg) by mouth every 8 hours as needed for Nausea/Emesis. Dissolve tablet on top of tongue, then swallow with saliva. 20 Tablet Active Additional Information Patient not taking.Reason: Other (Comments), Reported on 05/01/2025 Active Problems No known active problems Encounters Date Type Department Care Team Description 06/06/2025 External Device Data STL ABSTRACTION Provider, Abstract 05/23/2025 External Device Data STL ABSTRACTION Provider, Abstract 05/23/2025 External Device Data STL ABSTRACTION Provider, Abstract 05/10/2025 External Device Data STL ABSTRACTION Provider, Abstract 05/09/2025 External Device Data STL ABSTRACTION Provider, Abstract 05/01/2025 2:20 PM CDT Office Visit [facility] [place] [address] [place] [id number] Elaine Charles, ROLL EDGE MACHINE OPERATOR Tinea pedis of left foot (Primary Dx) 04/19/2025 External Device Data STL ABSTRACTION Provider, Abstract 04/19/2025 External Device Data STL ABSTRACTION Provider, Abstract 04/19/2025 External Device Data STL ABSTRACTION Provider, Abstract 04/12/2025 6:47 PM CDT - 04/12/2025 9:59 PM CDT Emergency [facility] [address] [facility] [address] [place] [phone] Inder Boone MD Gastroenteritis (Primary Dx); Dehydration Discharge Disposition: Home or Self Care 04/12/2025 Travel 04/11/2025 External Device Data STL ABSTRACTION Provider, Abstract 04/11/2025 External Device Data STL ABSTRACTION Provider, Abstract 03/22/2025 External Device Data STL ABSTRACTION Provider, Abstract 03/21/2025 External Device Data STL ABSTRACTION Provider, Abstract 03/21/2025 External Device Data STL ABSTRACTION Provider, Abstract from Last 3 Months Family History Medical History Relation Name Comments Healthy Father Healthy Mother Relation Name Status Comments Father Alive Mother Alive Social History Tobacco Use Types Packs/Day Years Used Date Smoking Tobacco: Former Smokeless Tobacco: Never Tobacco Cessation:Counseling Given: No Alcohol Use Standard Drinks/Week Comments Not Currently 0 (1 standard drink = 0.6 oz pur e alcohol) Feeling Safe Answer Date Recorded Are you in a relationship wi th someone who hurts you emotionally and/or physically? No 04/12/2025 Sex and Gender Information Value Date Recorded Sex Assigned at Not on file Legal Sex Male 8:53 AM FUR CLEANER Gender Identity Not on file Sexual Orientation Not on file Last Filed Vital Signs Vital Sign Reading Time Taken Comments Blood Pressure 142/70 05/01/2025 1:51 PM CDT Pulse 53 05/01/2025 1:45 PM CDT Temperature 36.3 C (97.4 F) 05/01/2025 1:45 PM CDT Respiratory Rate 18 05/01/2025 1:45 PM CDT Oxygen Saturation 98% 05/01/2025 1:45 PM CDT Inhaled Oxygen Concentration - - Weight 123.2 kg (271 lb 8 oz) 05/01/2025 1:45 PM CDT Height 170.2 cm (5' 7 ) 05/01/2025 1:45 PM CDT Body Mass Index 42.52 05/01/2025 1:45 PM CDT Plan of Treatment Health Maintenance Due Date Last Done Comments Pre-Diabetes and Diabetes Screening 1981 DTAP/TDAP/TD VACCINES (1 - Tdap) 2000 HEPATITIS B VACCINES (1 of 3 - 19+ 3-dose series) 11/06 HPV VACCINES (1 - 3-dose SCDM series) 2008 INFLUENZA VACCINE (#1) 2025 Procedures Procedure Name Priority Date/Time Associated Diagnosis Comments BASIC METABOLIC PANEL Stat 04/12/2025 7:43 PM CDT CBC WITH DIFFERENTIAL Stat 04/12/2025 7:43 PM CDT from Last 3 Months Results * (ABNORMAL) CBC WITH DIFFERENTIAL (04/12/2025 7:43 PM CDT) WBC 8.7 4.2 - 9.1 K/uL 04/12[facility]25 7:[facility] 5.30 4.63 - 6.08 M/uL 04/12/2025 7:52 [facility] HEMOGLOBIN 16.5 13.7 - 17.5 g/dL 04/12/2025 7:52 PM [facility] HEMATOCRIT 46.0 40.1 - 51.0 % 04/12/2025 7:52 PM [facility] MCV 86.8 79.0 - 92.2 fL 04/12/2025 7:52 PM [facility] MCH 31.1 25.7 - 32.2 pg 04/12/2025 7:52 PM [facility] MCHC 35.9 32.3 - 36.5 g/dL 04/12/2025 7:52 PM [facility] RDW 12.4 11.0 - 14.5 % 04/12/2025 7:52 PM [facility] RDW-STDEV 38.7 36.9 - 56.9 fL 04/12/2025 7:52 PM [facility] PLATELETS 180 130 - 400 K/uL 04/12/2025 7:52 PM [facility] MPV 11.0 10.0 - 14.8 fL 04/12/2025 7:52 PM T [facility] NEUTROPHILS 65 34 - 68 % 04/12/2025 7:52 PM T [facility] LYMPHOCYTES 25 22 - 53 % 04/12/2025 7:52 PM [facility] MONOCYTES 8 5 - 12 % 04/12/2025 7:52 PM T [facility] EOSINOPHILS 1 1 - 7 % 04/12/2025 7:52 PM T [facility] BASOPHILS 1 0 - 1 % 04/12/2025 7:52 PM CDT [facility] IMMATURE GRANULOCYTES 1 % 04/12/2025 7:52 PM T [facility] NEUTROPHIL ABSOLUTE 5.61(H) 1.78 - 5.38 K/uL 04/12/2025 7:52 PM CDT [facility] LYMPHOCYTE ABSOLUTE 2.15 1.20 - 3.40 K/uL 04/12/2025 7:52 PM CDT [facility] MONOCYTE ABSOLUTE 0.71 0.30 - 0.82 K/uL 04/12/2025 7:52 PM T [facility] EOSINOPHIL ABSOLUTE 0.09 0.04 - 0.54 K/uL 04/12/2025 7:52 PM T [facility] BASOPHILS ABSOLUTE 0.06 0.01 - 0.08 K/uL 04/12/2025 7:52 PM CDT [facility] IMMATURE GRANULOCYTES ABSOLUTE 0.04 K/uL 04/12/2025 7:52 PM [facility] Blood BLOOD SPECIMEN / Unknown Collection / Unknown 04/12/2025 7:43 PM CDT 04/12/2025 7:49 PM CDT us Inder Boone MD HEMATOLOGY ORDERABLES Fi nal Result [facility] CLIA # [id number] [address] [place] [id number] * (ABNORMAL) BASIC METABOLIC PANEL (04/12/2025 7:43 PM CDT) SODIUM 139 136 - 145 mmol/L 04/12/2025 8:04 PM [facility] POTASSIUM 4.1 3.5 - 5.1 mmol/L 04/12/2025 8:04 PM [facility] CHLORIDE 101 98 - 107 mmol/L 04/12/2025 8:04 PM [facility] CO2 21(L) 22 - 29 mmol/L 04/12/2025 8:04 PM [facility] CALCIUM 10.4(H) 8.6 - 10.0 mg/dL 04/12/2025 8:04 PM [facility] BUN 17 6 - 20 mg/dL 04/12/2025 8:04 PM [facility] CREATININE 1.27(H) 0.67 - 1.17 mg/dL 04/12/2025 8:04 PM [facility] GLUCOSE 83 74 - 99 mg/dL 04/12/2025 8:04 PM [facility] GFR >60 >=60 mL/min/1.7 3 sq meter 04/12/2025 8:04 PM [facility] Comment:eGFR calculated with 2020 CKD-EPI equation. Vegetarian diet, extremely high or low muscle mass, and may affect results. Cystatin C with Glomerular Filtration Rate is a suitable alternative for these patients. ANION GAP 17 5 - 20 mmol/L 04/12/2025 8:04 PM [facility] Blood BLOOD SPECIMEN / Unknown Collection / Unknown 04/12/2025 7:43 PM CDT 04/12/2025 7:49 PM CDT us Inder Boone MD CHEMISTRY ORDERABLES Fin al Result [facility] CLIA # [id number] [address] [place] [id number] from Last 3 Months Care Teams Heat Treat Puller Relationship Specialty Start Date End Date Amrit Gunn MD [address] [phone] PCP - General Family Practice 05/01/25
--- OUTSIDE RECORDS SUMMARY | 2025-06-16 12:22 | XMS_ITS | Encounter Summary ---
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
--- OUTSIDE RECORDS SUMMARY | 2025-06-16 12:22 | XMS_ITS | Encounter Summary ---
Author Organization [facility] Address [address] 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
--- OUTSIDE RECORDS SUMMARY | 2025-06-16 12:22 | XMS_ITS | Encounter Summary ---
Author Organization [facility] Address [address] [place] [address] Care Team Providers Care Electrophysiology Technician Name Role Phone Devora Hutton Primary Care Provider [phone] Encounter Details Date Type Department Care Team (Latest Contact Info) Description 12/24/1998 Outpatient Historical [facility] [place] [address] [place] [phone] [address] [place] [address] Cough (Primary Dx) Social History Tobacco Use Types Packs/Day Years Used Date Smoking Tobacco: Never Assessed Sex and Gender Information Value Date Recorded Sex Assigned at Not on file Legal Sex Male 5:19 AM 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
--- OUTSIDE RECORDS SUMMARY | 2025-06-16 12:22 | XMS_ITS | Clinical Summary ---
Author Organization [facility] Address [address] [place] [address] Phone Care Team Providers Care Email Marketing Executive Name Role Phone BrennenDevora Patricia [facility] Primary Care Provider [phone] Allergies Active Allergy Reactions Criticality Noted Date [...] on file Legal Sex Male 5:19 AM HORTICULTURAL SPECIALTY GROWER FIELD Gender Identity Not on file Sexual Orientation Not on file Occupation Industry Job Start Date Job End Date Not on file Not on file Not on file Not on file Last Filed Vital Signs Vital Sign Reading Time Taken Comments Blood Pressure 124/69 06/05/2019 5:22 PM CDT Pulse 60 11/24/2018 5:12 AM HORTICULTURAL SPECIALTY GROWER FIELD Temperature 36.4 C (97.6 F) 06/05/2019 5:22 [...] SCDM series) 2008 INFLUENZA VACCINE (#1) 2025 Insurance PLAN YEIMI Care Teams Email Marketing Executive Relationship Specialty Start Date End Date Devora Hutton FNP PCP - General NURSE PRACTITIONER 01/23/14
[2025-06-16 12:33] LABS: Hematocrit 40.1 % (37-53); Hemoglobin 14.10 g/dL (11.27-16.99); Mean Corpuscular HGB Conc 35.2 g/dL (30-55); Mean Corpuscular Hemoglobin 31.2 pg (27-33); Mean Corpuscular Volume 88.7 fl (82-101); Nucleated Red Blood Cells % 0 %; Platelet Count 156 10^3/cmm (157-399); Red Blood Count 4.52 10^6/uL (3.85-5.65); White Blood Count 5.49 10^3/uL (3.29-11.43)
--- NOTE | 2025-06-16 12:33 | ECG_ITS ---
[facility]: 2025-06[facility]16 Pat Name: Jonh Fofana Department: Room: Gender: Male Alterations Sewer: : 1980 Requested By: Joaquim Self Order Number: [id number] Sondra MD: MARCUS HOLDER Measurements Intervals [place] Rate: 62 P: 17 TX: 145 QRS: 16 QRSD: 105 T: 5 QT: 415 QTc: 423 Interpretive Statements SINUS RHYTHM POSSIBLE RIGHT VENTRICULAR CONDUCTION DELAY [RSR (QR) IN V1/V2] MINIMAL VOLTAGE CRITERIA FOR LVH, CONSIDER NORMAL VARIANT [MEETS CRITERIA IN ONE OF: R(aVL), S(V1), R(V5), R(V5/V6)+S(V1)] No previous ECG available for comparison Electronically Signed On 06-16-2025 20:09:45 CDT by MARCUS HOLDER [email or web address]
[2025-06-16 12:53] LABS: Alanine Aminotransferase 26 U/L (0-41); Albumin Level 4.5 g/dL (3.5-5.2); Alkaline Phosphatase 71 U/L (40-130); Blood Urea Nitrogen 17 mg/dL (6-20); Calcium 9.2 mg/dL (8.5-10.5); Carbon Dioxide 22 mmol/L (22-29); Chloride 105 mmol/L (98-107); Creatinine Clr Calc Pharmacy 148.5542; Globulin 3.1 g/dL (1.3-4.6); Glucose 90 mg/dL (65-115); Lipase 82 U/L (13-60); Osmolality Calculated 287 mOsm/kg (285-295); Sodium 138 mmol/L (136-145); Total Protein 7.6 g/dL (6.6-8.7)
[2025-06-16 13:07] LABS: Anion Gap 15.1 (5-19); Aspartate Amino Transferase 29 U/L (0-40); Potassium 4.1 mmol/L (3.5-5.1)
[2025-06-16 13:13] LABS: Glucose Urine UA Negative (Normal); Nitrate Urine Negative (Negative); Specific Gravity, Urine 1.026 (1.005-1.030)
[2025-06-16 13:18] LABS: Add Urine Microscopic? YES
[2025-06-16 13:36] VITALS: BP 147/83; PULSE 65; O2SAT 97
--- NOTE | 2025-06-16 14:28 | PC.NURSE ---
Pt ambulated w/o difficulty in hallway.
[2025-06-16 14:57] VITALS: BP 150/88; PULSE 69; O2SAT 98
== END 2025-06-16 14:58 | disposition home or self-care (01) ==
PROVIDERS: Emergency Provider Family Medicine
DX: I95.1 Orthostatic hypotension (principal); M62.82 Rhabdomyolysis
CPT/HCPCS: 80053; 81001; 82550; 83690; 85025; 93005; 96360; 99284; J7030